=== PATIENT | female | born 1950 | race Caucasian/White ===

== ENCOUNTER 2017-01-11 17:40 | Observation (INO) | payer MEDICARE, OTHER ==
[2017-01-11] MEDS ORDERED: Ketorolac 60 MG/2 ML SDV IM ONE (18:10)
--- NOTE | 2017-01-11 18:13 | EDM.PDOC ---
ED HPI GENERAL MEDICAL PROBLEM - General Chief Complaint: Lower Extremity Injury/Pain Stated Complaint: RIGHT ANKLE INJURY Time Seen by Provider: 01/11/17 18:02 Source of Information: Reports: Patient, Family, RN Notes Reviewed History Limitations: Reports: No Limitations - History of Present Illness INITIAL COMMENTS - FREE TEXT/NARRATIVE: 66-year-old female presents emergency department today with pain she in the ER when she placed in a hole twisting injury cannot bear weight Right Ankle Pain Score (Numeric/FACES): 7 - Related Data Allergies Allergy/AdvReac Type Severity Reaction Status Date / Time cephalexin monohydrate Allergy Airway Verified 12/25/14 09:08 [From Keflex] Tightness Dairy Products Allergy Diarrhea Verified 12/25/14 09:08 tree nut Allergy Swelling Verified 12/25/14 09:08 Home Meds: Home Meds Calcium Carb & Citrate/Vit D3 [Calcium + D3 ER Tablet] 1 tab PO DAILY 01/11/17 [ History] Estradiol [Estrace] 1 applic VAG WEEKLY 01/11/17 [History] Levothyroxine 1 tab PO DAILY 01/11/17 [History] Past Medical History REVENUE COORDINATOR History: Reports: Fibroids, Musculoskeletal History: Reports: Fracture Endocrine/Metabolic History: Reports: Hypothyroidism - Past Surgical History HEENT Surgical History: Reports: Tonsillectomy Female Surgical History: Reports: Hysterectomy, Salpingo-Oophorectomy Social & Family History - Tobacco Use Smoking Status *Q: Former Smoker Years of Tobacco use: 4 Packs/Tins Daily: 1 Used Tobacco, but Quit: Yes Month Tobacco Last Used: may - Caffeine Use Caffeine Use: Reports: Coffee - Recreational Drug Use Recreational Drug Use: No Review of Systems - Review of Systems Review Of Systems: See Below Musculoskeletal: Reports: Joint Pain (Ankle pain) Skin: Reports: No Symptoms Neurological: Reports: No Symptoms ED EXAM, GENERAL - Physical Exam Exam: See Below Free Text/Narrative:: Examination of the right lower extremity I don't appreciate any erythema she does have some mild edema around ankle she will not tolerate exam does not bear weight pedal pulses 2+ there's no tenderness Exam Limited By: No Limitations General Appearance: Alert, WD/WN, No Apparent Distress ED TRAUMA EXTREMITY PROCEDURES - Joint Reduction Site: Other (Right ankle) Sedation: Conscious Cedation Pre-Procedure NV Status: Normal Post-Procedure NV Status: Normal Technique: Traction/Counter Traction Number of Attempts: 1 Post-Reduction Imaging: Completely Reduced Joint Reduction Complications: No Progress/Comments: Procedure was done under sedation with anesthesia use of propofol used traction countertraction method after x-ray films demonstrated adequate reduction was placed in a posterior leg splint with stirrup, pedal pulses 2+ Course - Vital Signs Last Recorded V/S: Last Vital Signs Temp 97.9 F 01/11/17 18:06 Pulse 55 L 01/11/17 18:06 Resp 16 01/11/17 18:06 BP 136/86 01/11/17 18:06 Pulse Ox 98 01/11/17 18:06 - Orders/Labs/Meds Orders: Active Orders 24 hr Category Date Time Status Peripheral IV Care [RC] . DIRECTED Care 01/11/17 18:46 Active Ankle 2V Rt [CR] Stat Exams 01/11/17 18:47 Ordered Ankle Min 3V Rt [CR] Stat Exams 01/11/17 18:10 Taken Sodium Chloride 0.9% [Normal Saline] 1,000 ml Med 01/11/17 19:00 Active IV ASDIRECTED Sodium Chloride 0.9% [Saline Flush] Med 01/11/17 18:46 Active 10 ml FLUSH ASDIRECTED PRN Peripheral IV Insertion Adult [OM.PC] Urgent Oth 01/11/17 18:46 Ordered Medication Orders Sodium Chloride (Normal Saline) 1,000 mls @ 125 mls/hr IV ASDIRECTED NATALY Sodium Chloride (Saline Flush) 10 ml FLUSH ASDIRECTED PRN PRN Reason: Keep Vein Open Meds: Medications Generic Name Dose Route Start Last Admin Trade Name Freq PRN Reason Stop Dose Admin Sodium Chloride 1,000 mls @ 125 mls/hr 01/11/17 19:00 Normal Saline IV ASDIRECTED NATALY Sodium Chloride 10 ml 01/11/17 18:46 Saline Flush FLUSH ASDIRECTED PRN Keep Vein Open Discontinued Medications Generic Name Dose Route Start Last Admin Trade Name Freq PRN Reason Stop Dose Admin Ketorolac Tromethamine 60 mg 01/11/17 18:10 01/11/17 18:14 Toradol IM 01/11/17 18:11 60 mg ONETIME ONE Administration Departure - Departure Time of Disposition: 19:40 Disposition: Admitted As Inpatient 64 Condition: Good Clinical Impression: Closed fracture of distal end of right fibula and tibia Qualifiers: Encounter type: initial encounter Qualified Code(s): S82.831A - Other fracture of upper and lower end of right fibula, initial encounter for closed fracture; S82.301A - Unspecified fracture of lower end of right tibia, initial encounter for closed fracture - Discharge Information Forms: ED Department Discharge - My Orders Last 24 Hours: My Active Orders 01/11/17 18:10 Ankle Min 3V Rt [CR] Stat 01/11/17 18:46 Peripheral IV Care [RC] . DIRECTED Sodium Chloride 0.9% [Saline Flush] 10 ml FLUSH ASDIRECTED PRN Peripheral IV Insertion Adult [OM.PC] Urgent 01/11/17 18:47 Ankle 2V Rt [CR] Stat 01/11/17 19:00 Sodium Chloride 0.9% [Normal Saline] 1,000 ml IV ASDIRECTED - Assessment/Plan Last 24 Hours: My Active Orders 01/11/17 18:10 Ankle Min 3V Rt [CR] Stat 01/11/17 18:46 Peripheral IV Care [RC] . DIRECTED Sodium Chloride 0.9% [Saline Flush] 10 ml FLUSH ASDIRECTED PRN Peripheral IV Insertion Adult [OM.PC] Urgent 01/11/17 18:47 Ankle 2V Rt [CR] Stat 01/11/17 19:00 Sodium Chloride 0.9% [Normal Saline] 1,000 ml IV ASDIRECTED Plan: Assessment Acuity = acute Site and laterality = closed distal tib-fib fracture Etiology = secondary trauma Manifestations = none] Location of injury = Home Lab values = none Plan Discuss case with orthopedics on-call, recommended reduction and posterior splint with stirrup plan is to admit to the hospital tonight for pain control and then surgical correction in the morning Patient was in agreement with the plan all questions were answered, This note was dictated using [employer] voice recognition software please call with any questions.
[2017-01-11] MEDS ORDERED: Sodium Chloride 0.9% 10 ML Syringe FLUSH PRN (18:46)
[2017-01-11] MEDS ORDERED: Sodium Chloride 0.9% 1,000 ML IV SCH (19:00)
[2017-01-11] MEDS ORDERED: Propofol 200 MG/20 ML SDV ONE (19:36)
[2017-01-11] MEDS ORDERED: Ondansetron 4 MG/2 ML SDV IV PRN (19:41)
[2017-01-11] MEDS ORDERED: Morphine 2 MG/ML Syringe IVPUSH PRN (19:41)
[2017-01-11] MEDS: Lactated Ringers 1,000 ML IV SCH (21:58)
[2017-01-12] MEDS ORDERED: Levothyroxine 25 MCG Tab PO SCH (07:30)
[2017-01-12] MEDS ORDERED: Calcium Carbonate/Vitamin D3 1500 MG-400 Units Tab PO SCH (09:00)
--- NOTE | 2017-01-12 09:12 | CR ---
Ankle 2V Rt HISTORY: Post reduction. COMPARISON: Films earlier today. FINDINGS: The subluxation or partial dislocation of the right ankle appears to have been reduced. Mo derately displaced trimalleolar fracture.
--- NOTE | 2017-01-12 09:13 | CR ---
Ankle Min 3V Rt HISTORY: Injury COMPARISON: None FINDINGS: Moderately displaced trimalleolar fracture. Partial subluxation of the tibiotalar joint. T alar bone and calcaneus appear intact.
[2017-01-12] MEDS: Lactated Ringers 1,000 ML IV SCH (11:35)
[2017-01-12] MEDS ORDERED: Bupivacaine 0.5% 50 ML MDV ONE (12:14)
[2017-01-12] MEDS ORDERED: Povidone-Iodine 10% Soln 118.25 ML Bottle ONE (12:14)
[2017-01-12] MEDS ORDERED: Gentamicin 40 MG/ML 2 ML Vial ONE (12:21)
[2017-01-12] MEDS ORDERED: fentaNYL 100 MCG/2 ML SDV ONE (12:29)
[2017-01-12] MEDS ORDERED: Midazolam 1 MG/ML 2 ML SDV ONE (12:29)
[2017-01-12] MEDS ORDERED: Propofol 200 MG/20 ML SDV ONE (12:29)
[2017-01-12] MEDS ORDERED: Ondansetron 4 MG/2 ML SDV ONE (12:42)
[2017-01-12] MEDS ORDERED: Dexamethasone 4 MG/ML SDV ONE (12:42)
[2017-01-12] MEDS ORDERED: fentaNYL 250 MCG/5 ML SDV ONE (12:42)
[2017-01-12] MEDS ORDERED: Rocuronium 50 MG/5 ML Vial ONE (12:43)
[2017-01-12] MEDS ORDERED: Scopolamine 1.5 MG Transdermal Patch ONE (13:00)
[2017-01-12] MEDS ORDERED: Neostigmine Methylsulfate 1 MG/ML 5 ML Syringe ONE (13:48)
[2017-01-12 16:12] VITALS: BP 125/70
--- NOTE | 2017-01-12 21:49 | OR ---
DATE OF PROCEDURE: 01/12/2017 PREOPERATIVE DIAGNOSIS: Right bimalleolar ankle fracture closed. POSTOPERATIVE DIAGNOSIS: Right bimalleolar ankle fracture closed. PROCEDURE: Open reduction, internal fixation, right bimalleolar ankle fracture. STEEL HANGER: BLAINE Barry. ANESTHESIA: General endotracheal intubation. FLUIDS: Lactated Ringer solution. ESTIMATED BLOOD LOSS: Less than 25 mL. COMPLICATIONS: None. SPECIMENS: None. DISCHARGE DISPOSITION: Stable to PACU. TOURNIQUET TIME: 44 minutes. INDICATIONS FOR PROCEDURE: The patient injured her ankle last evening. She was seen in the emergency department for the above mentioned diagnosis, which was confirmed on imaging. She was slightly reduced and placed into a posterior splint. She was then admitted to the Orthopedic Service. I talked to the patient's family today. Risks and benefits of the procedure were explained to the patient. Informed consent was obtained. DETAILS OF PROCEDURE: The patient was seen preoperatively in her hospital bed by myself and the Anesthesia staff. The right lower extremity was examined and found to have appropriate swelling to proceed with today's procedure. The operative site was marked. She was brought to the operative suite by the Anesthesia staff where general anesthesia was administered. A well-padded tourniquet was placed on the right thigh. The right lower extremity was then prepped and draped in a sterile manner. Time-out was called identifying the correct patient, correct procedure, the correct site, and then antibiotics had begun within appropriate period of time. The right lower extremity was then exsanguinated. Tourniquet was raised to 250 mmHg for 44 minutes. A sterilely draped fluoroscopy unit was used to identify that we had good reduction. I then made an incision from the distal tip of the fibula extending proximally approximately 12 cm. This was carried down to the fascia. I then used a Ripley to go through to the fracture site, and then bluntly dissected the periosteum off the bone proximally and distally. I used bone tenaculum to reduce the fracture. I then placed a compression screw using 3.5 mm screw. This provided good compression, and then placed an anatomic distal fibular locking plate with a cortical screw first followed by one of distal locking holes with a cortical screw, which brought the bone to the plate. We then drilled and filled the rest of the screws and confirmed that everything was in good placement on fluoroscopy. We then irrigated. My assistant kitchen manager then started closing that side with 2-0 Vicryl followed by 2-0 Monocryl. We then used the fluoroscopy to identify the distal tip of the malleolus and the fracture was well reduced. I made an incision just distal to the tip of the medial malleolus, and then used K-wire under fluoroscopic guidance, driving into the tibia, I then used a cannulated drill bit to go over the guidewire, and then inserted 50-mm screw, and then brought this down to just over two finger tightness. This provided excellent reduction. We then removed the K-wire, irrigated, closed that with 2-0 Vicryl followed by 2-0 Monocryl. All incisions were covered by Steri-Strips with Mastisol, followed by Betadine-soaked Adaptic, sterile Webril sponges, and the patient was then placed back into a walker boot. She was allowed to awaken from general anesthesia and taken to the PACU in stable condition. Renzo Dooley DO /[id number]
[2017-01-16] MEDS ORDERED: ESTRADIOL VAG SCH (09:00)
--- NOTE | 2017-01-22 14:37 | PCM.DCSUM1 ---
Discharge Summary - Hospital Course Free Text/Narrative:: Amy is a pleasant female who is status postop day 1 of ORIF of the ankle. She is doing very well. She has been elevating with crutches with no difficulties at this time. Patient is having surgery today and is being discharged right after surgery. she will discharge home with Percocet to take as needed. Her is here to pick her up. - Discharge Data Discharge Date: 01/12/17 Discharge Disposition: Home, Self-Care 01 Condition: Undetermined - Patient Instructions Diet: Regular Diet as Tolerated Activity: Apply Ice, As Tolerated Activity, Other: Non weight bearing right leg until follow up appt. Use walker. Driving: Do Not Drive Showering/Bathing: May Shower Showering/Bathing, Other: May shower in 48 hours Wound/Incision Care: Keep Operative Site/Wound Site Clean and Dry Other/Special Instructions: Continue home medications also with: Percocet 5/ 325 mg 1 tablet every 6 hours as needed for pain. Aspirin 325mg orally every day. - Discharge Plan Home Medications: Home Meds Calcium Carb & Citrate/Vit D3 [Calcium + D3 ER Tablet] 1 tab PO DAILY 01/11/17 [ History] Estradiol [Estrace] 1 applic VAG WEEKLY 01/11/17 [History] Levothyroxine 1 tab PO DAILY 01/11/17 [History] Patient Handouts: Ankle Fracture Forms: ED Department Discharge Referrals: Renzo Dooley DO [Physician] - 01/26/17 10:00 am ([facility]. Check in at ER registration desk. ) - Discharge Summary/Plan Comment DC Time >30 min.: Yes - General Info Date of Service: 01/12/17 Functional Status: Reports: Pain Controlled, Tolerating Diet, Ambulating, Urinating - Patient Data Vitals - Most Recent: Last Vital Signs Temp 35.1 C L 01/12/17 15:30 Pulse 48 L 01/12/17 16:11 Resp 16 01/12/17 16:11 BP 125/70 01/12/17 16:11 Pulse Ox 96 01/12/17 16:11 Weight - Most Recent: 135 lb Med Orders - Current: Current Medications Discontinued Medications Bupivacaine HCl (Marcaine 0.5%) Confirm Administered Dose 50 ml .ROUTE .STK-MED ONE Stop: 01/12/17 12:15 Last Admin: 01/12/17 13:17 Dose: 20 ml Calcium Carbonate (Caltrate 600+D 1500 Mg-400 Units) 1 tab PO DAILY [facility] Last Admin: 01/12/17 09:05 Dose: Not Given Dexamethasone (Dexamethasone) Confirm Administered Dose 4 mg .ROUTE .STK-MED ONE Stop: 01/12/17 12:43 Fentanyl (Sublimaze) Confirm Administered Dose 100 mcg .ROUTE .STK-MED ONE Stop: 01/12/17 12:30 Fentanyl (Sublimaze) Confirm Administered Dose 250 mcg .ROUTE .STK-MED ONE Stop: 01/12/17 12:43 Glycopyrrolate () Confirm Administered Dose 1 mg .ROUTE .STK-MED ONE Stop: 01/12/17 13:49 Sodium Chloride (Normal Saline) 1,000 mls @ 125 mls/hr IV ASDIRECTED [facility] Lactated Ringer's (Ringers, Lactated) 1,000 mls @ 75 mls/hr IV ASDIRECTED [facility] Last Admin: 01/12/17 11:35 Dose: 75 mls/hr Clindamycin Phosphate 600 mg/ (Sodium Chloride) 54 mls @ 108 mls/hr IV ONETIME ONE Stop: 01/12/17 13:44 Last Admin: 01/12/17 13:28 Dose: 108 mls/hr Ketorolac Tromethamine (Toradol) 60 mg IM ONETIME ONE Stop: 01/11/17 18:11 Last Admin: 01/11/17 18:14 Dose: 60 mg Levothyroxine Sodium (Levothyroxine) 25 mcg PO ACBREAKFAST [facility] Last Admin: 01/12/17 09:05 Dose: Not Given Midazolam HCl (Versed 1 Mg/Ml) Confirm Administered Dose 2 mg .ROUTE .STK-MED ONE Stop: 01/12/17 12:30 Morphine Sulfate (Morphine) 2 mg IVPUSH Q2H PRN PRN Reason: Pain (severe 7-10) Last Admin: 01/12/17 15:35 Dose: 2 mg Neostigmine Methylsulfate (Neostigmine) Confirm Administered Dose 5 mg .ROUTE .STK-MED ONE Stop: 01/12/17 13:49 Estradiol [Estrace] (Vag Cr (Ptom)) 0 applic VAG Q7D [facility] Ondansetron HCl (Zofran) 4 mg IV Q4H PRN PRN Reason: Nausea/Vomiting Ondansetron HCl (Zofran) Confirm Administered Dose 4 mg .ROUTE .STK-MED ONE Stop: 01/12/17 12:43 Povidone Iodine (Betadine 10% Soln) Confirm Administered Dose 1 ml .ROUTE .STK- MED ONE Stop: 01/12/17 12:15 Last Admin: 01/12/17 13:18 Dose: 20 ml Propofol (Diprivan 20 Ml) Confirm Administered Dose 200 mg .ROUTE .STK-MED ONE Stop: 01/11/17 19:37 Propofol (Diprivan 20 Ml) Confirm Administered Dose 200 mg .ROUTE .STK-MED ONE Stop: 01/12/17 12:30 Rocuronium [place] (Zemuron) Confirm Administered Dose 50 mg .ROUTE .STK-MED ONE Stop: 01/12/17 12:44 Scopolamine (Transderm-Scop) Confirm Administered Dose 1.5 mg .ROUTE .STK-MED ONE Stop: 01/12/17 13:01 Sodium Chloride (Saline Flush) 10 ml FLUSH ASDIRECTED PRN PRN Reason: Keep Vein Open *Q Meaningful Use (DIS) - VTE *Q VTE Criteria *Q: - Stroke *Q Stroke Criteria *Q: - AMI *Q AMI Criteria *Q:
== END 2017-01-12 19:24 | disposition home or self-care (01) ==
LOC: JP.ED 17:40 → JP.2SS 19:41 → JP.MS 01-12 10:30 → JP.2SS 01-12 10:32
PROVIDERS: ADMIT Orthopaedic Surgery; ATTEND Orthopaedic Surgery
DX: S82.841A Displaced bimalleolar fracture of right lower leg, initial encounter for closed fracture (principal); E03.9 Hypothyroidism, unspecified; X50.1XXA Overexertion from prolonged static or awkward postures, initial encounter; Z88.1 Allergy status to other antibiotic agents; Z91.011 Allergy to milk products; Z88.8 Allergy status to other drugs, medicaments and biological substances; Z79.899 Other long term (current) drug therapy; Z90.710 Acquired absence of both cervix and uterus; Z98.890 Other specified postprocedural states; Z87.891 Personal history of nicotine dependence
CPT/HCPCS: 27814; 27818; 36415; 73600; 73610; 76001; 80053; 85025; 96372; 99284; A9270; C1713; G0378; J1100; J1885; J2250; J2270; J2405; J2704; J3010; J7050; J7120; 28575-RT; J1580; S0077